=== PATIENT | female | born 2000 | race Caucasian/White ===

== ENCOUNTER 2022-09-25 10:17 | Outpatient (CLI) | payer OTHER, SELFPAY | END 2022-09-25 10:18 | disposition home or self-care (01) | LOC: LKVREF 10-01 09:27 | PROVIDERS: Visit Provider Physician Assistant Medical | DX: R35.89 Other polyuria (principal); N39.0 Urinary tract infection, site not specified | CPT/HCPCS: 87086; 87186 ==

== ENCOUNTER 2023-06-30 14:07 | Outpatient (CLI) | payer OTHER, SELFPAY | END 2023-06-30 14:08 | disposition home or self-care (01) | LOC: LKVREF 07-04 09:39 | PROVIDERS: PCP Otolaryngology; Visit Provider Nurse Practitioner Family | DX: Z11.9 Encounter for screening for infectious and parasitic diseases, unspecified (principal) | CPT/HCPCS: 86618 ==

== ENCOUNTER 2023-07-21 15:11 | Outpatient (CLI) | payer OTHER, SELFPAY | END 2023-07-21 15:12 | disposition home or self-care (01) | LOC: NFLDREF 07-25 09:21 | PROVIDERS: PCP Otolaryngology; Referring Provider Otolaryngology; Visit Provider Nurse Practitioner Family | DX: Z11.9 Encounter for screening for infectious and parasitic diseases, unspecified (principal); W57.XXXA Bitten or stung by nonvenomous insect and other nonvenomous arthropods, initial encounter | CPT/HCPCS: 86618 ==